=== PATIENT | female | born 1985 | race Caucasian/White ===

== ENCOUNTER 2020-10-25 04:07 | Emergency (ER) | payer MEDICAID ==
[~2020-10-25] VITALS: Ht 160 cm; Wt 69.1 kg
[2020-10-25 04:13] VITALS: BP 142/78
--- NOTE | 2020-10-25 04:17 | NUR ---
FHT 160 with doppler
== END 2020-10-25 04:29 ==
LOC: ER 04:08
DX: O99.313 Alcohol use complicating pregnancy, third trimester (principal); F10.929 Alcohol use, unspecified with intoxication, unspecified; Z72.89 Other problems related to lifestyle; Z79.899 Other long term (current) drug therapy; Y90.9 Presence of alcohol in blood, level not specified; Z3A.32 32 weeks gestation of pregnancy
CPT/HCPCS: 99283

== ENCOUNTER 2022-03-06 15:14 | Emergency (ER) | payer MEDICAID ==
[~2022-03-06] VITALS: Ht 160 cm; Wt 72.7 kg
[2022-03-06 15:37] VITALS: BP 129/96
== END 2022-03-06 16:31 ==
LOC: ER 15:15
DX: S00.511A Abrasion of lip, initial encounter (principal); R07.81 Pleurodynia; Z02.89 Encounter for other administrative examinations; V49.9XXA Car occupant (driver) (passenger) injured in unspecified traffic accident, initial encounter; Y93.89 Activity, other specified; Y92.89 Other specified places as the place of occurrence of the external cause; Y99.8 Other external cause status
CPT/HCPCS: 99283

== ENCOUNTER 2022-03-06 17:56 | Emergency (ER) | payer MEDICAID ==
[~2022-03-06] VITALS: Ht 160 cm; Wt 72.7 kg
[2022-03-06 18:05] VITALS: BP 118/71
== END 2022-03-06 18:58 | disposition home or self-care (01) ==
LOC: ER 17:56
DX: F10.129 Alcohol abuse with intoxication, unspecified (principal); Z88.5 Allergy status to narcotic agent; Z88.8 Allergy status to other drugs, medicaments and biological substances; Y90.9 Presence of alcohol in blood, level not specified
CPT/HCPCS: 36415; 84702; 99283

== ENCOUNTER 2024-02-04 19:39 | Inpatient (IN) | payer MEDICAID, OTHER ==
[~2024-02-04] VITALS: Ht 160 cm; Wt 68.2 kg
[2024-02-04 20:29] LABS: BASOPHILS % (AUTO) 0.4 % (0-1); EOSINOPHILS % (AUTO) 0.4 % (0-6); HEMOGLOBIN 11.5 g/dl (12.0-16.0); LYMPHOCYTES # (AUTO) 0.9 X10'3 (1.1-4.8); LYMPHOCYTES % (AUTO) 14.2 % (21-51); MEAN CORPUSCULAR HEMOGLOBIN 26.5 PG (27.0-31.0); MEAN CORPUSCULAR VOLUME 80.4 FL (78-98); MEAN PLATELET VOLUME 8.6 FL (7.4-10.4); MONOCYTES # (AUTO) 0.3 X10'3 (0-0.9); MONOCYTES % (AUTO) 4.9 % (2-12); NEUTROPHILS # (AUTO) 5.3 X10'3 (1.8-7.7); NEUTROPHILS % (AUTO) 80.1 % (42-75); PLATELET COUNT 327 X10'3 (140-440); RED BLOOD COUNT 4.35 X10'6 (4.20-5.60); RED CELL DISTRIBUTION WIDTH 18.2 % (11.5-14.5); WHITE BLOOD COUNT 6.6 X10'3 (4.5-11.0)
[2024-02-04] MEDS: ondansetron/PF 4mg/2ml inj IV ONE (20:36)
[2024-02-04 20:41] LABS: BILIRUBIN,URINE NEGATIVE (Neg); CLARITY,URINE CLOUDY (Clear); COLOR,URINE YELLOW (Yellow); GLUCOSE, URINE NEGATIVE (Neg); KETONES,URINE NEGATIVE (Neg); LEUKOCYTE ESTERASE ,URINE NEGATIVE (Neg); NITRITES, URINE NEGATIVE (Neg); OCCULT BLOOD,URINE NEGATIVE (Neg); PROTEIN,URINE NEGATIVE (Neg); URINE HCG NEGATIVE (NEG); UROBILINOGEN,URINE 0.2 E.U/dL (0.2-1.0)
[2024-02-04 20:44] LABS: ALANINE AMINOTRANSFERASE 138 U/L (12-78); ALKALINE PHOSPHATASE 174 IU/L (46-116); ANION GAP 10 (8-16); ASPARTATE AMINO TRANSFERASE 60 U/L (10-37); BILIRUBIN,TOTAL 0.7 MG/DL (0.1-1.0); BLOOD UREA NITROGEN 10 MG/DL (7-18); BUN/CREATININE RATIO 16.1 (10.0-20.0); CALCIUM 9.1 MG/DL (8.5-10.1); CHLORIDE 104 MMOL/L (99-107); CREATININE 0.62 MG/DL (0.40-0.90); GLUCOSE 103 MG/DL (70-104); LIPASE 30 U/L (16-77); POTASSIUM 3.4 MMOL/L (3.5-5.1); SODIUM 139 MMOL/L (135-145); TOTAL CARBON DIOXIDE 24.6 MMOL/L (24-32); TOTAL PROTEIN 8.1 G/DL (6.4-8.2); eCRCL 104 ML/MIN; eGFR > 90 ML/MIN
[2024-02-04 20:52] LABS: UA COLLECTION TYPE CLN CATCH MIDSTREAM
[2024-02-04 20:57] LABS: BACTERIA,URINE FEW /HPF (Neg); RBC,URINE 0-2 /HPF (0-2); SQUAMOUS EPITHELIAL CELL,UR FEW /LPF (FEW); WBC,URINE 0-4 /HPF (0-4)
[2024-02-04 20:58] LABS: AMORPHOUS PHOSPHATES 4+
[2024-02-04] MEDS: HYDROmorphone 1 mg/ml syringe IV ONE (21:07)
[2024-02-04] MEDS: piperacillin/tazo 3.375gm/50ml 50 ML IV SCH (21:18)
[2024-02-04] MEDS ORDERED: mag hydrox/Alum hydrox/simeth 30ml oral suspension PO PRN (21:25)
[2024-02-04] MEDS ORDERED: magnesium hydroxide 30ml (MOM) UD suspension PO PRN (21:25)
[2024-02-04] MEDS ORDERED: magnesium Cl slow-release 64mg tablet PO PRN (21:25)
[2024-02-04] MEDS ORDERED: potassium Cl 40MEQ/1/2NS 520ml 520 ML IV PRN (21:25)
[2024-02-04] MEDS ORDERED: acetaminophen 325mg tablet PO PRN (21:25)
[2024-02-04] MEDS ORDERED: ondansetron/PF 4mg/2ml inj IV PRN (21:25)
[2024-02-04] MEDS ORDERED: magnesium 2GM in 50ml NS 50 ML IV PRN (21:25)
[2024-02-04] MEDS ORDERED: magnesium 4gm in 100ml NS 100 ML IV PRN (21:25)
[2024-02-04] MEDS ORDERED: potassium Cl 20 mEq SR tablet PO PRN ×2 (21:25)
[2024-02-04] MEDS: normal saline 1000ml 1,000 ML IV SCH (21:37)
[2024-02-05] MEDS: piperacillin/tazo 3.375gm/50ml 50 ML IV SCH (07:10)
[2024-02-05] MEDS: K and/or MAG REPLACEMENT MC SCH (08:00)
[2024-02-05] MEDS: docusate sod 100mg capsule PO SCH (08:00)
[2024-02-05 08:15] LABS: EOSINOPHILS # (AUTO) 0.1 X10'3 (0-0.9); HEMOGLOBIN 10.2 g/dl (12.0-16.0); MEAN PLATELET VOLUME 8.3 FL (7.4-10.4); MONOCYTES # (AUTO) 0.3 X10'3 (0-0.9); NEUTROPHILS # (AUTO) 1.6 X10'3 (1.8-7.7); WHITE BLOOD COUNT 3.1 X10'3 (4.5-11.0)
[2024-02-05 08:18] LABS: BASOPHILS % (AUTO) 0.6 % (0-1); EOSINOPHILS % (AUTO) 2.4 % (0-6); HEMATOCRIT 31.3 % (35.0-45.0); LYMPHOCYTES # (AUTO) 1.2 X10'3 (1.1-4.8); LYMPHOCYTES % (AUTO) 36.8 % (21-51); MEAN CORPUSCULAR HEMOGLOBIN 26.3 PG (27.0-31.0); MEAN CORPUSCULAR HGB CONC 32.5 g/dL (33.0-36.5); MEAN CORPUSCULAR VOLUME 80.8 FL (78-98); MONOCYTES % (AUTO) 9.2 % (2-12); PLATELET COUNT 284 X10'3 (140-440); RED BLOOD COUNT 3.88 X10'6 (4.20-5.60)
[2024-02-05 08:36] LABS: ALBUMIN 3.1 G/DL (3.4-5.0); ANION GAP 6 (8-16); BLOOD UREA NITROGEN 9 MG/DL (7-18); BUN/CREATININE RATIO 14.5 (10.0-20.0); CALCIUM 8.1 MG/DL (8.5-10.1); CHLORIDE 108 MMOL/L (99-107); CREATININE 0.62 MG/DL (0.40-0.90); GLUCOSE 96 MG/DL (70-104); POTASSIUM 3.7 MMOL/L (3.5-5.1); SODIUM 141 MMOL/L (135-145); TOTAL CARBON DIOXIDE 27.5 MMOL/L (24-32); eCRCL 104 ML/MIN; eGFR > 90 ML/MIN
[2024-02-05] MEDS ORDERED: iohexol 300mg/ml 100ml inj. ONE (15:52)
[2024-02-05 16:00] VITALS: BP 107/71; PULSE 70; RESP 16; TEMP 98.4; O2SAT 99
[2024-02-05 18:00] VITALS: BP 112/79; PULSE 81; RESP 16; TEMP 98.4; O2SAT 99
[2024-02-05] MEDS: enoxaparin 40mg/0.4ml syringe SQ SCH (20:00)
[2024-02-05 20:10] VITALS: RESP 16
[2024-02-05 22:00] VITALS: BP 96/50; PULSE 60; RESP 12; TEMP 96.8; O2SAT 98
[2024-02-06] VITALS (20 sets, daily range): BP systolic 93–150; BP diastolic 39–89; PULSE 57–86; RESP 0–17; TEMP 96.8–98.3; O2SAT 96–100
[2024-02-06 05:57] LABS: BASOPHILS % (AUTO) 0.8 % (0-1); EOSINOPHILS # (AUTO) 0.1 X10'3 (0-0.9); EOSINOPHILS % (AUTO) 4.1 % (0-6); HEMATOCRIT 30.3 % (35.0-45.0); HEMOGLOBIN 9.7 g/dl (12.0-16.0); LYMPHOCYTES # (AUTO) 1.5 X10'3 (1.1-4.8); LYMPHOCYTES % (AUTO) 53.5 % (21-51); MEAN CORPUSCULAR HEMOGLOBIN 26.1 PG (27.0-31.0); MEAN CORPUSCULAR HGB CONC 32.1 g/dL (33.0-36.5); MEAN CORPUSCULAR VOLUME 81.4 FL (78-98); MEAN PLATELET VOLUME 8.2 FL (7.4-10.4); MONOCYTES # (AUTO) 0.3 X10'3 (0-0.9); MONOCYTES % (AUTO) 9.5 % (2-12); NEUTROPHILS # (AUTO) 0.9 X10'3 (1.8-7.7); NEUTROPHILS % (AUTO) 32.1 % (42-75); PLATELET COUNT 275 X10'3 (140-440); RED BLOOD COUNT 3.72 X10'6 (4.20-5.60); RED CELL DISTRIBUTION WIDTH 17.9 % (11.5-14.5); WHITE BLOOD COUNT 2.7 X10'3 (4.5-11.0)
[2024-02-06 06:08] LABS: ALBUMIN 2.9 G/DL (3.4-5.0); ANION GAP 3 (8-16); BLOOD UREA NITROGEN 5 MG/DL (7-18); BUN/CREATININE RATIO 8.5 (10.0-20.0); CALCIUM 7.9 MG/DL (8.5-10.1); CHLORIDE 112 MMOL/L (99-107); CREATININE 0.59 MG/DL (0.40-0.90); GLUCOSE 95 MG/DL (70-104); MAGNESIUM 1.9 MG/DL (1.5-2.4); POTASSIUM 3.9 MMOL/L (3.5-5.1); SODIUM 142 MMOL/L (135-145); TOTAL CARBON DIOXIDE 27.4 MMOL/L (24-32); eCRCL 109 ML/MIN; eGFR > 90 ML/MIN
[2024-02-06 06:40] LABS: PLATELET ESTIMATE NORMAL; TOTAL CELLS COUNTED 100
[2024-02-06 06:41] LABS: HYPOCHROMASIA 1+
[2024-02-06 06:42] LABS: ANISOCYTOSIS 1+
[2024-02-06 06:43] LABS: LARGE PLATELETS FEW; ROULEAUX 1+
[2024-02-06 09:20] LABS: ALANINE AMINOTRANSFERASE 136 U/L (12-78); ALBUMIN/GLOBULIN RATIO 0.9 (1.1-1.5); ALKALINE PHOSPHATASE 143 IU/L (46-116); ASPARTATE AMINO TRANSFERASE 43 U/L (10-37); BILIRUBIN,TOTAL 0.6 MG/DL (0.1-1.0)
[2024-02-06] MEDS ORDERED: labetalol 20mg/4ml (5mg/ml) syringe IV PRN (10:00)
[2024-02-06] MEDS ORDERED: hydrALAZINE 20mg/ml inj. IV PRN (10:00)
[2024-02-06] MEDS ORDERED: morphine 4 MG/ML inj SYRINge IV PRN (10:00)
[2024-02-06] MEDS ORDERED: fentaNYL/PF 50MCG/1 ML 2ML syringe IV PRN (10:00)
[2024-02-06] MEDS ORDERED: midazolam 1 mg/ML 2ml injection ONE (12:48)
[2024-02-06] MEDS ORDERED: fentaNYL/PF 50MCG/1 ML 2ML syringe ONE (12:48)
[2024-02-06] MEDS ORDERED: rocuronium 10mg/ml inj IV ONE (12:50)
[2024-02-06] MEDS ORDERED: propofol inj 20 ML IV ONE ×2 (12:50→12:51)
[2024-02-06] MEDS ORDERED: ondansetron/PF 4mg/2ml inj ONE (12:50)
[2024-02-06] MEDS ORDERED: LIDOcaine 2% (20mg/ml) 5ml vial ONE (12:50)
[2024-02-06] MEDS ORDERED: neostigmine methylsulfate 1 MG/ML 10ml vial ONE (12:50)
[2024-02-06] MEDS ORDERED: dexamethasone sod phosphate 4mg/ml inj. ONE (12:50)
[2024-02-06] MEDS ORDERED: glycopyrrolate 0.2mg/ml inj ONE (12:51)
[2024-02-06] MEDS: BUPIVAcaine 0.25% w/Epi /PF 30ml vial IJ ONE (13:04)
[2024-02-06] MEDS ORDERED: sevoflurane 250ml liquid IH ONE (13:45)
[2024-02-06] MEDS ORDERED: acetaminophen 1,000mg/100ml IV 100 ML IV ONE (13:58)
[2024-02-06] MEDS: ondansetron/PF 4mg/2ml inj IV PRN (15:20)
[2024-02-06] MEDS ORDERED: naloxone 0.4 mg/ml inj IV PRN (15:25)
[2024-02-06] MEDS ORDERED: ondansetron/PF 4mg/2ml inj IV PRN (15:25)
[2024-02-06] MEDS: morphine 2 MG/ML inj. syringe IV PRN ×2 (15:40)
[2024-02-06] MEDS: fentaNYL/PF 50MCG/1 ML 2ML syringe IV PRN (15:56)
[2024-02-06] MEDS: ceFOXitin 1 GM/NS 100mL IVPB 100 ML IV SCH (16:55)
[2024-02-06] MEDS: BUPIVAcaine 2.5mg/ml inj 50ml vial (contains preservative) ONE (18:40)
[2024-02-06] MEDS: INDOCYANINE GREEN 25 MG/10 ML VIAL IV ONE (18:42)
[2024-02-06] MEDS: HYDROcodone/acetaminophen 5mg/325mg tablet PO PRN (19:44)
[2024-02-06] MEDS ORDERED: MULT-1085 PO (20:41)
[2024-02-06] MEDS ORDERED: OMEP20TA43 PO (20:41)
[2024-02-07 06:02] LABS: BASOPHILS % (AUTO) 0.1 % (0-1); EOSINOPHILS % (AUTO) 0 % (0-6); HEMATOCRIT 29.8 % (35.0-45.0); HEMOGLOBIN 9.8 g/dl (12.0-16.0); LYMPHOCYTES # (AUTO) 0.8 X10'3 (1.1-4.8); LYMPHOCYTES % (AUTO) 19.8 % (21-51); MEAN CORPUSCULAR HEMOGLOBIN 26.1 PG (27.0-31.0); MEAN CORPUSCULAR HGB CONC 32.8 g/dL (33.0-36.5); MEAN CORPUSCULAR VOLUME 79.7 FL (78-98); MEAN PLATELET VOLUME 8.5 FL (7.4-10.4); MONOCYTES # (AUTO) 0.3 X10'3 (0-0.9); MONOCYTES % (AUTO) 8.2 % (2-12); NEUTROPHILS # (AUTO) 2.9 X10'3 (1.8-7.7); NEUTROPHILS % (AUTO) 71.9 % (42-75); PLATELET COUNT 283 X10'3 (140-440); RED BLOOD COUNT 3.74 X10'6 (4.20-5.60); RED CELL DISTRIBUTION WIDTH 17.7 % (11.5-14.5)
[2024-02-07 06:15] LABS: ALBUMIN 3.1 G/DL (3.4-5.0); ANION GAP 7 (8-16); BLOOD UREA NITROGEN 4 MG/DL (7-18); BUN/CREATININE RATIO 7.1 (10.0-20.0); CALCIUM 8.1 MG/DL (8.5-10.1); CHLORIDE 106 MMOL/L (99-107); CREATININE 0.56 MG/DL (0.40-0.90); GLUCOSE 114 MG/DL (70-104); MAGNESIUM 1.7 MG/DL (1.5-2.4); POTASSIUM 3.7 MMOL/L (3.5-5.1); SODIUM 139 MMOL/L (135-145); TOTAL CARBON DIOXIDE 25.6 MMOL/L (24-32); eCRCL 115 ML/MIN; eGFR > 90 ML/MIN
[2024-02-07 07:02] VITALS: BP 104/58; PULSE 64; RESP 14; TEMP 98.2; O2SAT 99
[2024-02-07 11:14] VITALS: BP 98/57; PULSE 79; RESP 20; TEMP 97.5; O2SAT 99
[2024-02-07 12:58] VITALS: RESP 14
[2024-02-08 12:25] LABS: HBSAG SCREEN Negative (Negative); HEP B CORE AB, IGM Negative (Negative)
== END 2024-02-07 15:12 | DRG 419 ==
LOC: ER 19:39 → EEVIPCON 19:39 → ED HOLD 21:29 → SUR 3N 02-05 15:30
PROVIDERS: ADMIT Internal Medicine Pulmonary Disease; ATTEND Family Medicine
PROC: BW211ZZ Computerized Tomography (CT Scan) of Abdomen and Pelvis using Low Osmolar Contrast (ICD-10-PCS; 2024-02-05)
PROC: 8E0W4CZ Robotic Assisted Procedure of Trunk Region, Percutaneous Endoscopic Approach (ICD-10-PCS; 2024-02-06)
PROC: 0FT44ZZ Resection of Gallbladder, Percutaneous Endoscopic Approach (ICD-10-PCS; principal; 2024-02-06 13:45)
DX: K80.00 Calculus of gallbladder with acute cholecystitis without obstruction (principal); E87.6 Hypokalemia; D64.9 Anemia, unspecified; R74.01 Elevation of levels of liver transaminase levels; K82.8 Other specified diseases of gallbladder; Z88.5 Allergy status to narcotic agent; Z88.8 Allergy status to other drugs, medicaments and biological substances
CPT/HCPCS: 96365; 96375; 99285; Z7506; Z7508; 36415; 74177; 76700; 80048; 80053; 81001; 81025; 82948; 83690; 83735; 85007; 85025; 86705; 87081; 87340; A4215; A4618; A7000; G0378; J0131; J0694; J1100; J1170; J1650; J2250; J2270; J2405; J2543; J2704; J2710; J3010; J3490; J7030; J7040; J7120; Q9967; S0020

== ENCOUNTER 2024-06-10 18:11 | Emergency (ER) | payer MEDICAID, OTHER ==
[~2024-06-10] VITALS: Ht 160 cm; Wt 78.0 kg
[~2024-06-10 18:11] MED LIST: MULT-1085 PO; OMEP20TA43 PO
[2024-06-10 22:21] VITALS: BP 114/75; PULSE 75; RESP 16; TEMP 98.1; O2SAT 99
== END 2024-06-10 22:22 | disposition home or self-care (01) ==
LOC: ER 18:11
DX: R00.2 Palpitations (principal); F10.90 Alcohol use, unspecified, uncomplicated; Z88.8 Allergy status to other drugs, medicaments and biological substances; Z79.899 Other long term (current) drug therapy; Z88.5 Allergy status to narcotic agent
CPT/HCPCS: 93005; 99283

== ENCOUNTER 2024-12-23 12:06 | Emergency (ER) | payer MEDICAID ==
[~2024-12-23] VITALS: Ht 160 cm; Wt 72.3 kg
[2024-12-23 12:12] VITALS: BP 137/63; PULSE 90; RESP 18; TEMP 97.5; O2SAT 98
== END 2024-12-23 12:38 | disposition home or self-care (01) ==
LOC: ER 12:07
DX: Z00.8 Encounter for other general examination (principal); F10.20 Alcohol dependence, uncomplicated; Z88.5 Allergy status to narcotic agent; Y90.9 Presence of alcohol in blood, level not specified
CPT/HCPCS: 99281